=== PATIENT | male | born 1960 | race Caucasian/White ===

== ENCOUNTER 2024-10-30 12:36 | Emergency (ER) | payer BC ==
[2024-10-30] MEDS: Tetracaine HCl/PF 0.5% 4 ML Bottle EYELF ONE (12:49)
[2024-10-30 13:22] VITALS: BP 151/93; PULSE 85
== END 2024-10-30 13:18 | disposition home or self-care (01) ==
LOC: KA.ED 12:36
DX: H10.32 Unspecified acute conjunctivitis, left eye (principal); I10 Essential (primary) hypertension; E78.00 Pure hypercholesterolemia, unspecified; K21.9 Gastro-esophageal reflux disease without esophagitis; Z79.899 Other long term (current) drug therapy; Z88.8 Allergy status to other drugs, medicaments and biological substances
CPT/HCPCS: 99283; J3490; J7050